=== PATIENT | female | born 1960 | race Caucasian/White ===

== ENCOUNTER → 2017-04-29 | Outpatient (CLI) | payer BC ==
--- NOTE | 2017-04-29 18:00 | RADRPT ---
PROCEDURE: US Lower extremity arterial, bilateral CLINICAL INDICATION: Resting lower extremity pain TECHNIQUE: Multiple sonographic images of the bilateral lower extremity arteries was obtained util izing grayscale, color-flow and doppler imaging. The images were reviewed on a PACS workstation. COMPARISON: None. FINDINGS: There is no significant plaque. Velocities and waveforms were obtained as described below. RIGHT LEG: Right common femoral artery: 105 cm/s; triphasic waveforms Right profunda femoral artery: 53 cm/s; triphasic waveforms Right proximal superficial femoral artery: 81 cm/s; triphasic waveforms Right mid superficial femoral artery: 83 cm/s; triphasic waveforms Right distal superficial femoral artery: 87 cm/s; triphasic waveforms Right popliteal artery: 50 cm/s; biphasic waveforms Right posterior tibial artery: 76 cm/s; triphasic waveforms Right dorsalis pedis artery: 42 cm/s; monophasic waveforms LEFT LEG: Left common femoral artery: 95 cm/s; triphasic waveforms Left profunda femoral artery: 64 cm/s; triphasic waveforms Left proximal superficial femoral artery: 117 cm/s; triphasic waveforms Left mid superficial femoral artery: 95 cm/s; triphasic waveforms Left distal superficial femoral artery: 89 cm/s; triphasic waveforms Left popliteal artery: 51 cm/s; triphasic waveforms Left posterior tibial artery: 75 cm/s; triphasic waveforms Left dorsalis pedis artery: 48 cm/s; biphasic waveforms RPTAT: AA IMPRESSION: Unremarkable bilateral lower extremity arterial Doppler ultrasound without evidence of occlusion or a hemodynamically significant stenosis. Physician Mariza Date Time Electronically viewed and signed by Physician Mariza on 04/29/2017 17:59 /
== END | disposition home or self-care (01) ==
LOC: RAD 14:28
PROVIDERS: ATTEND Specialist
DX: I89.0 Lymphedema, not elsewhere classified (principal); R22.40 Localized swelling, mass and lump, unspecified lower limb; R20.0 Anesthesia of skin; R20.2 Paresthesia of skin
CPT/HCPCS: 93922